=== PATIENT | male | born 1965 | race American Indian/Alaskan Native ===

== ENCOUNTER 2017-07-15 12:32 | Day surgery (SDC) | payer OTHER ==
[2017-07-15] MEDS ORDERED: NACL 0.9% 1000 ML 1,000 ML IV SCH (14:00)
[2017-07-15] MEDS ORDERED: WATER FOR IRRIG STERILE ONE (14:11)
--- NOTE | 2017-07-15 16:07 | Anesthesia Consultation ---
Anesthesia Consult and Med Hx - Airway Anesthetic Teeth Evaluation: Good ROM Head & Neck: Adequate Mental/Hyoid Distance: Adequate Mallampati Class: Class III Intubation Access Assessment: Possibly Difficult - Pulmonary Exam CTA: Yes - Cardiac Exam Cardiac Exam: RRR - Pre-Operative Health Status ASA Pre-Surgery Classification: ASA2 Proposed Anesthetic Plan: MAC (pt has not had anesthesia in the past) - Cardiovascular System Hx Hypertension: Yes - Other Systems Hx Obesity: Yes (gout )
--- NOTE | 2017-07-15 16:08 | Anesthesia Day of Surgery ---
Anesthesia Day of Surgery - Day of Surgery Patient Examined: Yes Patient H&P Reviewed: Yes Patient is NPO: Yes
[2017-07-15] MEDS ORDERED: DIPRIVAN 10 MG/ML IV ONE ×3 (16:53→17:50)
[2017-07-15] MEDS ORDERED: ZOFRAN ONE (18:15)
--- NOTE | 2017-07-15 18:26 | Operative Report ---
Operative Report Operative Report: Date of procedure: 07/15/2017 Procedure: Colonoscopy with Submucosal injection and Snare polypectomy of ascending colon polyp, Hot Biopsy Polypectomy of , Ablation of multiple diminutive flat cecal polyps Attending physician: Zachary Boyle MD Mission Commander: Zachary Boyle MD Indication: Patient is a 52 -year-old male who presents for screening colonoscopy. This colonoscopy serves to evaluate patient so that treatment may be directed based on the findings. Consent: Informed consent was obtained after advising the patient and family regarding nature of this procedure, its indications, potential benefits as well as possible complications including but not limited to bleeding perforation and adverse reaction to medication, infection as well as other cardiopulmonary complications. An informed written and verbal consent was then obtained after due opportunity was provided for questions and answers. Monitoring: Patient was monitored continuously with pulse oximetry and electrocardiographic recordings as well as blood pressure recordings. Vital signs remained stable throughout this procedure with no untoward events. Preoperative assessment: Patient was assessed immediately prior to this procedure for capacity to tolerate monitored anesthesia care and moderate sedation as well as general anesthesia. Patient's ASA classification is 2, Mallampati class is 2, Hyomental distance is 3. Instrument: Invesharen video colonoscope Medications: Propofol given intravenously in divided doses. For details please refer to anesthesia records. Description of procedure: Patient was placed in the left lateral decubitus position after achieving sedation, a digital rectal examination was performed following which the colonoscope was introduced into the anal verge and advanced to the cecum which was identified by the cecal valve, the appendiceal orifice, as well as by the cecal strap and direct transillumination. The colonoscope was subsequently withdrawn with careful inspection of all mucosal surfaces. Patient tolerated this procedure well and was subsequently taken to the recovery room. The following findings were noted. Findings: Patient's colonoscopic preparation was fair. There was a broad- based sessile polyp seen in the ascending colon. This was elevated with submucosal injection of saline and subsequently removed by snare electrocautery. There was a 6-7 mm polyp which was sessile in the transverse colon which was removed by hot biopsy polypectomy. There were multiple diminutive flat polyps in the cecum which were ablated. Patient was noted to have internal hemorrhoids seen on the retroflexed view at the anal verge. Impression: Broad-based sessile polyp seen in the ascending colon, status post submucosal injection of saline and subsequent removal by snare electrocautery. . Transverse colon polyp status post hot biopsy polypectomy. Cecal polyps status post ablation. Internal hemorrhoids. Plan: Follow pathology report. High-fiber diet. Repeat colonoscopy in 5 years if polyps are adenomatous
--- NOTE | 2017-07-15 18:27 | Discharge Summary ---
Short Stay Discharge Plan Activity: advance as tolerated Weight Bearing Status: Weight Bear as Tolerated Diet: regular Follow up with: WINSOME TRACY MD [Primary Care Provider] - 7 Days
[2017-07-15 18:59] VITALS: BP 117/78
[2017-07-15] MEDS ORDERED: ZOFRAN IV ONE (19:05)
== END 2017-07-15 12:33 | disposition home or self-care (01) ==
LOC: GIO 12:32
PROVIDERS: ATTEND Internal Medicine Gastroenterology
DX: Z12.11 Encounter for screening for malignant neoplasm of colon (principal); D12.2 Benign neoplasm of ascending colon; E66.9 Obesity, unspecified; M10.9 Gout, unspecified; I10 Essential (primary) hypertension; K63.5 Polyp of colon
CPT/HCPCS: 45384; 45388; 45390; 88305; J2405; J2704; J7030